=== PATIENT | female | born 1960 | race Caucasian/White ===

== ENCOUNTER 2018-02-13 23:43 | Inpatient (IN) ==
[2018-02-14] MEDS ORDERED: Naloxone 0.4 MG/ML INJ IVP PRN (02:30)
[2018-02-14] MEDS ORDERED: Acetaminophen 325 MG TABLET PO PRN (02:30)
--- NOTE | 2018-02-14 02:39 | Internal Med History&Physical ---
Date of Encounter: 02/14/18 Time of Encounter: 01:50 Internal Medicine - H&P: HPI Chief complaint: Shortness of breath Admitted From: Home Plans for Post Hospital Care: Home History of present illness: Ms. Yang is a 57 year old female present to [place] emergency room for shortness of breath. Past medical history is significant for COPD on home oxygen, hypertension. Patient has shortness of breasts which is getting progressively worse. Patient has a cough with greenish sputum, no blood in it. In last week, patient has a fever, measured as 101. Patient denies chest pain, nausea, or vomiting. Patient complaint of very weak in last week. She said she lost 7 pounds in last 3 months. In emergency room, CT chest shows large left-sided mass and pneumonia. Patient was transferred to our hospital for further management. Past Med Surg Social Fam HX - Past Medical History Medical history: COPD, hyperlipidemia, other Psychiatric history: no psych history, other - Social History Smoking Status: Current every day smoker Packs per day: < 1 Smokeless Tobacco Status: No Alcohol use: occasionally Drug use: none - Family History Father Living Status: Hx Family Respiratory Disorders: Yes (COPD) Hx Family Musculoskeletal Disorders: Yes (RA) Internal Medicine - H&P: Meds Albuterol Neb [AccuNeb] 3 ml IH QID PRN 11/16/17 [History] Amiodarone [Cordarone] 200 mg PO DAILY 11/17/17 [History] Ferrous Sulfate [Iron] 325 mg PO BID 11/17/17 [History] Folic Acid 1 mg PO DAILY 11/17/17 [History] Lisinopril 2.5 mg PO DAILY 11/17/17 [History] clonazePAM [Klonopin] 0.5 mg PO TID 11/17/17 [History] Aspirin [Ecotrin] 81 mg PO DAILY #0 11/19/17 [Rx] Fluticasone/Vilanterol [Breo Ellipta 100-25 Mcg INH] 1 puff IH DAILY 02/13/18 [ History] Furosemide [Lasix] 40 mg PO DAILY 02/13/18 [History] Montelukast [Singulair] 10 mg PO DAILY 02/13/18 [History] Omeprazole [PriLOSEC] 40 mg PO DAILY 02/13/18 [History] Potassium Chloride [Klor-Con 10] 10 meq PO BID 02/13/18 [History] Simvastatin [Zocor] 80 mg PO DAILY 02/13/18 [History] Tiotropium [place] [Spiriva Respimat] 4 gm IH 02/13/18 [History] 3 Allergy/AdvReac Type Severity Reaction Status Date / Time Sulfa (Sulfonamide Allergy Hives Verified 11/16/17 19:00 Antibiotics) All Systems PM: A 10-system review of systems was performed and is negative for pertinent findings except as documented above in the HPI. - Constitutional Vitals: Temp Pulse Resp BP Pulse Ox 97.9 F 71 16 111/62 95 02/14/18 02:01 02/14/18 02:01 02/14/18 02:01 02/14/18 02:01 02/14/18 02:01 General appearance: Present: cachectic, mild distress, A&O X 3, answers questions appropriately - Head Head exam: Present: atraumatic, normocephalic - Eye Eye exam: Present: PERRL, conjuntiva pink, sclera anicteric Pupils: Present: PERRL - Neck Neck exam general surgery: Present: supple, trachea midline. Absent: lymphadenopathy - Respiratory Respiratory exam: Present: CTAB. Absent: accessory muscle use, rales, rhonchi, wheezes Additional comments: rubs on left chest - Cardiovascular Cardiovascular exam: Present: RRR, +S1, +S2. Absent: diastolic murmur, gallop, rubs, systolic murmur - GI/Abdominal GI/Abdominal exam: Present: normal bowel sounds, soft, no peritoneal signs. Absent: distended, tenderness - Extremities Exam Extremities exam: Present: warm, radial pulses palpable and symmetrical. Absent : calf tenderness, cyanotic, pedal edema - Neurological Exam Neurological exam: Present: CN II-XII intact, oriented X3, no focal deficits. Absent: pronater drift, facial droop, speech deficit - Skin Skin exam: Present: dry, intact - Assessment and plan (1) Healthcare-associated pneumonia Current Visit: Yes Status: Acute Assessment and plan: Chest x-ray and CT chest shows pneumonia. Patient was recently admitted in hospital. Will treat patient as healthcare associates pneumonia. - Place patient on Vanco and cefepime - Continue symptomatic treatment and oxygen supportive treatment. (2) DVT prophylaxis Current Visit: Yes Status: Acute Assessment and plan: EPCD at this point. Will start heparin if no further procedure will be done. (3) COPD (chronic obstructive pulmonary disease) Current Visit: Yes Status: Acute Assessment and plan: No wheezing. Continue oxygen. Continue home medications Qualifiers: COPD type: emphysema Emphysema type: unspecified Qualified Code(s): J43.9 - Emphysema, unspecified (4) Lung mass Current Visit: No Status: Acute Assessment and plan: Large lung mass, probably malignancy neoplasm. Will consult pulmonology and oncology. Keep patient nothing by mouth for possible procedure. (5) Hyponatremia Current Visit: No Status: Resolved Assessment and plan: Patient has chronic hyponatremia. Place patient on low rate normal saline. Closely monitor sodium level. Goal of correction is not more than 8 mEq in the first 24 hours. - Time Spent With Patient Total time spent is greater than 50% in coordination of care (as documented) at patient's floor/unit and/or counseling patient: 40 minutes Greater than 35 minutes
[2018-02-14] MEDS ORDERED: Vancomycin 500 MG in 0.9 % Sodium Chloride 250 ML IVPB SCH (03:00)
[2018-02-14] MEDS: 0.9 % Sodium Chloride 1,000 ML IVC SCH ×2 (03:26→21:34)
[2018-02-14 03:46] LABS: Basophils # 0.1 K/mcL (0.0-0.2); Basophils % 0.5 %; Eosinophils # 0.9 K/mcL (0.0-0.6); Eosinophils % 7.6 %; Hematocrit 27.3 % (35.3-44.9); Hemoglobin 8.8 g/dL (11.5-15.4); Immature Granulocytes % 0.4 % (0-4); Lymphocytes # 1.1 K/mcL (0.6-4.6); Lymphocytes % 9.8 %; Mean Corpuscular HGB Conc 32.2 g/dL (31.6-35.5); Mean Corpuscular Hemoglobin 29.1 pg (28.0-33.3); Mean Corpuscular Volume 90.4 fL (83.0-100.0); Mean Platelet Volume 8.6 fL (9.4-12.4); Monocytes # 1.4 K/mcL (0.0-1.3); Monocytes % 12.1 %; Neutrophils # 7.8 K/mcL (1.6-8.9); Platelet Count 352 K/mcL (140-400); Red Blood Count 3.02 M/mcL (3.82-4.97); Red Cell Distribution Width 13.2 % (11.5-14.5); Segmented Neutrophils % 69.6 %
[2018-02-14 04:02] LABS: INR 1.1; Prothrombin Time 12.1 Seconds (9.4-12.1)
[2018-02-14 04:10] LABS: BUN/Creatinine Ratio 17 (6-26); Blood Urea Nitrogen 6 mg/dL (6-20); Calcium 8.6 mg/dL (8.6-10.3); Carbon Dioxide 30 mEq/L (23-29); Chloride 90 mEq/L (98-107); Glucose 84 mg/dL (70-105); Magnesium 1.8 mg/dL (1.6-2.6); Osmolality,Calculated 259 (280-300); Potassium 3.9 mEq/L (3.5-5.1); Sodium 126 mEq/L (136-145); eGFR For African Americans > 60 (> 60); eGFR For Non-African Americans > 60 (> 60)
[2018-02-14] MEDS ORDERED: Albuterol Neb 0.63 MG/3 ML VIAL IH PRN (05:00)
--- NOTE | 2018-02-14 07:34 | Pulmonology Consult Note ---
Date of Encounter: 02/14/18 Time of Encounter: 07:33 Assessment and Plan (1) Mass of left lung Current Visit: No Status: Acute I reviewed CT scan of the patient is notable for left upper lobe lung mass with diffuse lymphadenopathy in the right lower lobe cavitary lesion CONCERNING for metastatic lung cancer. -A bronchoscopy is recommended. The procedure , risks, benefits, complications, and expected outcomes have been reviewed. Benefits of diagnosis, as well as risks to include bleeding, infection, pneumothorax which may require surgical intervention, and in a small population. The patient is aware that sometimes test is nondiagnostic. Discussed with patient and agrees to proceed. -Please keep nothing by mouth at midnight for planned procedure tomorrow at 8 AM under general anesthesia (2) COPD with exacerbation Current Visit: Yes Status: Acute Schedule bronchodilators (duo nebs) every 6 hours with every one hour albuterol IV Solu-Medrol 40 mg twice a day with transition to oral formulation in the next 24-48 hours cont Breo 100-25 daily (3) Pneumonia Current Visit: No Status: Acute Notable left upper lobe infiltrate versus lymphangitic spread of malignancy given elevation in white count and symptoms is reasonable to treat for pneumonia agree with continuation of antibiotics please send sputum culture and blood cultures if not obtained also send urine Legionella and strep pneumo antigens Clinical course anywhere between 3-7 days based upon clinical response Qualifiers: Pneumonia type: due to unspecified organism Laterality: left Lung location: upper lobe of lung Qualified Code(s): J18.1 - Lobar pneumonia, unspecified organism (4) Tobacco abuse Current Visit: Yes Status: Acute Tobacco abuse counseling given please provide patient with nicotine replacement in the form of patch while inpatient History of Present Illness Consult date: 02/14/18 Requesting physician: Leanna Baker Reason for consult: abnormal CXR/CT Chief complaint: Difficulty in Breathing History of present illness: This is a 57-year-old woman with a past medical history of COPD who presented with worsening shortness of breath that started last night. She states that she generally has difficulty breathing but last night breathing became much more labored. She also had a nonproductive cough. Denies any hemoptysis night sweats but she has endorsed a 7-10 pound weight loss over last 3 months that has been addressed by her PCP by adding supplemental nutrition in the form of shakes. 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 No history of incarceration. In the ED she was noted to have a CT of the chest performed which was noted both for a left upper lobe mass pulmonary consulted for further evaluation. Past Med Surg Social Fam HX - Past Medical History Medical history: COPD, hyperlipidemia, other Psychiatric history: no psych history, other - Social History Smoking Status: Current every day smoker Packs per day: < 1 Smokeless Tobacco Status: No Alcohol use: occasionally Drug use: none - Family History Father Living Status: Hx Family Respiratory Disorders: Yes (COPD) Hx Family Musculoskeletal Disorders: Yes (RA) Medications and Allergies Albuterol Neb [AccuNeb] 3 ml IH QID PRN 11/16/17 [History] Amiodarone [Cordarone] 200 mg PO DAILY 11/17/17 [History] Ferrous Sulfate [Iron] 325 mg PO BID 11/17/17 [History] Folic Acid 1 mg PO DAILY 11/17/17 [History] Lisinopril 2.5 mg PO DAILY 11/17/17 [History] clonazePAM [Klonopin] 0.5 mg PO TID 11/17/17 [History] Aspirin [Ecotrin] 81 mg PO DAILY #0 11/19/17 [Rx] Fluticasone/Vilanterol [Breo Ellipta 100-25 Mcg INH] 1 puff IH DAILY 02/13/18 [ History] Furosemide [Lasix] 40 mg PO DAILY 02/13/18 [History] Montelukast [Singulair] 10 mg PO DAILY 02/13/18 [History] Omeprazole [PriLOSEC] 40 mg PO DAILY 02/13/18 [History] Potassium Chloride [Klor-Con 10] 10 meq PO BID 02/13/18 [History] Simvastatin [Zocor] 80 mg PO DAILY 02/13/18 [History] Tiotropium [place] [Spiriva Respimat] 4 gm IH 02/13/18 [History] 3 Allergy/AdvReac Type Severity Reaction Status Date / Time Sulfa (Sulfonamide Allergy Hives Verified 11/16/17 19:00 Antibiotics) All Systems: The remainder of the systems were reviewed and are negative Physical Examination Vital Signs: Vital Signs, Last 4 Hours Temp Pulse Resp BP Pulse Ox 02/14/18 06:47 97.8 F 74 22 117/69 99 General appearance: no acute distress, other (thin and frail appearing looks older than stated age) ENT: oropharynx moist Neck: no lymphadenopathy Effort: normal Auscultation: bilateral: diminished breath sounds Cardiovascular: regular rate and rhythm Gastrointestinal: normoactive bowel sounds Integumentary: normal Extremities: no cyanosis, no edema, no clubbing Musculoskeletal: no deformities normal mental status mood appropriate Results - Laboratory Findings CBC and BMP: 02/14/18 03:36 02/14/18 03:36 PT/INR, D-dimer PT 12.1 Seconds (9.4-12.1) 02/14/18 03:36 Abnormal lab findings: Abnormal lab results WBC 11.2 K/mcL (4.3-11.1) H 02/14/18 03:36 RBC 3.02 M/mcL (3.82-4.97) L 02/14/18 03:36 Hgb 8.8 g/dL (11.5-15.4) L 02/14/18 03:36 Hct 27.3 % (35.3-44.9) L 02/14/18 03:36 MPV 8.6 fL (9.4-12.4) L 02/14/18 03:36 Monocytes # 1.4 K/mcL (0.0-1.3) H 02/14/18 03:36 Eosinophils # 0.9 K/mcL (0.0-0.6) H 02/14/18 03:36 Sodium 126 mEq/L (136-145) L 02/14/18 03:36 Chloride 90 mEq/L (98-107) L 02/14/18 03:36 Carbon Dioxide 30 mEq/L (23-29) H 02/14/18 03:36 Creatinine 0.35 mg/dL (0.60-1.20) L 02/14/18 03:36 Calculated Osmolality 259 (280-300) L 02/14/18 03:36 - Diagnostic Findings Chest x-ray: report reviewed, image reviewed CT scan - chest: report reviewed, image reviewed - Clinical Findings Intake & Output: Intake & Output 02/13/18 02/13/18 02/14/18 15:59 23:59 07:59 Weight 40.8 kg Consult Discharge Plan - Plan Referrals: Jennifer Lee MD [Primary Care Provider] -
[2018-02-14] MEDS: (Breo Ellipta 100-25 Mcg Inh) IH SCH (08:22)
[2018-02-14] MEDS: Cefepime HCl 1,000 MG in Water for inj. (sterile) 20 ML 10 ML IVP SCH ×3 (08:23→23:41)
[2018-02-14 14:18] LABS: Sodium, Urine 102.8 mEq/L
--- NOTE | 2018-02-14 18:26 | Internal Med Progress Note ---
Date of Encounter: 02/14/18 Time of Encounter: 11:50 - Assessment and plan (1) Hyponatremia Current Visit: Yes Status: Acute Assessment and plan: Chronic. Patient is receiving gentle IV fluid hydration of 0.9 normal saline at 60 mL per hour. Sodium to be repeated at 1830. Repeat labs in the morning Goals correction is not more than 8 mEq in 24 hours. (2) Lung mass Current Visit: Yes Status: Acute Assessment and plan: Large lung mass noted on chest CT. Large left upper lung mass compatible with neoplasm, there is a cavitary lesion within the right lower lobe with increased regular wall thickening also worrisome for neoplasm. Patient was evaluated by pulmonology and recommended bronchoscopy and will be nothing by mouth after midnight for planned procedure tomorrow morning at 8 AM under general anesthesia. (3) Healthcare-associated pneumonia Current Visit: Yes Status: Acute Assessment and plan: Chest x-ray and CT chest shows pneumonia. Patient was recently admitted in hospital. We will treat for age Since recent admission. - Continue vancomycin and cefepime IV - Continue scheduled bronchodilators every 6 hours with every 1 hour albuterol, IV Solu-Medrol 40 mg twice daily with transition to oral in the next 24-48 and continue [place] 100/25 daily. Legionella and strep pneumo antigens ordered and pending (4) DVT prophylaxis Current Visit: Yes Status: Acute Assessment and plan: EPCD (5) COPD (chronic obstructive pulmonary disease) Current Visit: Yes Status: Acute Assessment and plan: Chronic. Plan as above. Qualifiers: COPD type: emphysema Emphysema type: unspecified Qualified Code(s): J43.9 - Emphysema, unspecified - Time Spent With Patient Total time spent is greater than 50% in coordination of care (as documented) at patient's floor/unit and/or counseling patient: less than 15 minutes - Subjective Interval history: She was seen and assessed at bedside at 11:50 AM. Patient is alert, awake, oriented. She is cachectic and reports decreased appetite recently. He wears 4 L of oxygen at home. She reports shortness of breath for 1 week, worse over the last 2-3 days. She is visibly short of breath and has obvious conversational dyspnea, though she states she is better now. She denies chest pain, headache, nausea vomiting, vision changes, abdominal pain. - Constitutional Vitals: Temp Pulse Resp BP Pulse Ox 98.8 F 88 20 142/80 91 02/14/18 15:20 02/14/18 15:20 02/14/18 16:29 02/14/18 15:20 02/14/18 16:29 General appearance: Present: cachectic, cooperative, mild distress, A&O X 3, pleasant, answers questions appropriately - Head Head exam: Present: atraumatic, normal inspection, normocephalic - Eye Eye exam: Present: normal appearance, conjuntiva pink, sclera anicteric - Neck Neck exam general surgery: Present: supple, trachea midline. Absent: lymphadenopathy, tenderness - Respiratory Respiratory exam: Present: decreased breath sounds, CTAB, respiratory distress. Absent: accessory muscle use, chest wall tenderness, rales, rhonchi, wheezes - Cardiovascular Cardiovascular exam: Present: RRR, +S1, +S2. Absent: diastolic murmur, gallop, rubs, systolic murmur - GI/Abdominal GI/Abdominal exam: Present: normal bowel sounds, soft. Absent: distended, hepatomegaly, tenderness - Extremities Exam Extremities exam: Present: normal capillary refill, normal inspection, warm, radial pulses palpable and symmetrical. Absent: calf tenderness, cyanotic, pedal edema, tenderness - Neurological Exam Neurological exam: Present: alert, oriented X3, no focal deficits. Absent: facial droop, speech deficit - Skin Skin exam: Present: dry, intact, normal color, warm. Absent: rash Internal Medicine: Result - Labs CBC & Chem 7: 02/14/18 03:36 02/14/18 03:36 Labs: Short CBC 02/14/18 Range/Units 03:36 WBC 11.2 H (4.3-11.1) K/mcL Hgb 8.8 L (11.5-15.4) g/dL Hct 27.3 L (35.3-44.9) % Plt Count 352 (140-400) K/mcL Neutrophils # 7.8 (1.6-8.9) K/mcL BMP 02/14/18 03:36 Sodium 126 L Potassium 3.9 Chloride 90 L Carbon Dioxide 30 H BUN 6 Creatinine 0.35 L Glucose 84 Calcium 8.6 - ABG Interpretation ABG results: PT/INR, D-dimer PT 12.1 Seconds (9.4-12.1) 02/14/18 03:36 - VTE Documentation of Mechanical Device: Intermittent pneumatic compression device Consult Discharge Plan - Plan Referrals: Jennifer Lee MD [Primary Care Provider] -
[2018-02-14] MEDS: Ipratropium/Albuterol Neb 3 ML IH SCH ×2 (19:17)
[2018-02-14] MEDS ORDERED: Furosemide 20 MG/2 ML VIAL IVP ONE (21:26)
[2018-02-14] MEDS: clonazePAM 0.5 MG TABLET PO SCH (21:29)
[2018-02-15] MEDS: Ipratropium/Albuterol Neb 3 ML IH SCH ×4 (03:50→22:25)
[2018-02-15] MEDS ORDERED: *HR* FentaNYL (PF) 100 MCG/2 ML VIAL IVP ONE (06:23)
[2018-02-15] MEDS ORDERED: Tetracaine/Benzocaine/Butamben 200MG/SPRAY (100SPY/BOT) MM ONE (06:23)
[2018-02-15] MEDS ORDERED: Albuterol 2.5 MG/3 ML NEBULIZER IH ONE (06:23)
[2018-02-15] MEDS ORDERED: *HR* Midazolam HCl 2 MG/2 ML VIAL IVP ONE (06:23)
[2018-02-15] MEDS ORDERED: *HR* EPINEPHrine 1 MG/10 ML SYRINGE INTRATRACH PRN (06:23)
[2018-02-15] MEDS ORDERED: Lidocaine -MPF 2% 2 ML VIAL IH ONE (06:23)
--- NOTE | 2018-02-15 06:23 | Pre-Sedation Evaluation ---
Pre-sedation evaluation - Pre-sedation checklist Date of procedure: 02/15/18 Procedure: Bronchoscopy Recent Vitals: Last Vital Signs Temp 97.5 F L 02/15/18 03:41 Pulse 87 02/15/18 03:41 Resp 15 02/15/18 03:50 BP 132/66 02/15/18 03:41 Pulse Ox 92 02/15/18 03:50 H&P (including ROS) documented in medical record: Yes Previous reaction to sedatives/anesthetics: No Dietary Status: NPO after Midnight Airway Assessment: Patient can open mouth completely, TMJ function normal Dentition: poor dentition Possible difficult airway: No ASA Classification *see protocol: CLASS III-Severe systemic disease Plan of Care: Pt appropriate candidate for procedure/moderate/conscious sedation , Risks/benefits of procedure/sedation discussed w/ patient/family
[2018-02-15] MEDS ORDERED: *HR* Succinylcholine 200 MG/10 ML VIAL IVP ONE (06:43)
[2018-02-15] MEDS ORDERED: Lidocaine -MPF 2% 2 ML VIAL ONE (06:43)
[2018-02-15] MEDS ORDERED: *HR* Propofol 200 MG/20 ML VIAL IVP ONE (06:49)
[2018-02-15 06:54] LABS: Basophils # 0.1 K/mcL (0.0-0.2); Basophils % 0.6 %; Eosinophils # 1.4 K/mcL (0.0-0.6); Eosinophils % 12.4 %; Hematocrit 27.6 % (35.3-44.9); Hemoglobin 8.9 g/dL (11.5-15.4); Immature Granulocytes % 0.3 % (0-4); Lymphocytes # 0.7 K/mcL (0.6-4.6); Mean Corpuscular HGB Conc 32.2 g/dL (31.6-35.5); Mean Corpuscular Hemoglobin 29.5 pg (28.0-33.3); Mean Corpuscular Volume 91.4 fL (83.0-100.0); Mean Platelet Volume 8.9 fL (9.4-12.4); Monocytes # 1.1 K/mcL (0.0-1.3); Monocytes % 9.5 %; Neutrophils # 8.3 K/mcL (1.6-8.9); Platelet Count 372 K/mcL (140-400); Red Blood Count 3.02 M/mcL (3.82-4.97); Red Cell Distribution Width 13.2 % (11.5-14.5); Segmented Neutrophils % 71.2 %
[2018-02-15 07:15] LABS: BUN/Creatinine Ratio 16 (6-26); Blood Urea Nitrogen 5 mg/dL (6-20); Calcium 8.5 mg/dL (8.6-10.3); Carbon Dioxide 31 mEq/L (23-29); Chloride 92 mEq/L (98-107); Glucose 96 mg/dL (70-105); Lactate Dehydrogenase 146 Units/L (140-271); Osmolality,Calculated 267 (280-300); Potassium 3.7 mEq/L (3.5-5.1); Sodium 130 mEq/L (136-145); eGFR For African Americans > 60 (> 60); eGFR For Non-African Americans > 60 (> 60)
[2018-02-15] MEDS ORDERED: *HR* PHENYLEPHRINE 1,000 MCG/10 ML SYRINGE IVP ONE (07:23)
--- NOTE | 2018-02-15 07:25 | Anesthesia Evaluation PreOp ---
Date of Encounter: 02/15/18 Time of Encounter: 08:00 - Past History Planned Operation: EBUS Cardiac History: HTN, Hyperlipidemia, Other (PFO with Left to right shunt) Pulmonary History: Smoker, COPD (Severe, Home O2 4 lpm), Other WATCH ADJUSTER History: Denies Any Significant HX Other Medical History: GERD, Other (Chronic hyponatremia, Anemia) Anesthesia History: No Prior Anesthetic Complications, Past Anesthesia Alcohol Use: occasionally Drug use: none Medications and Allergies Albuterol Neb [AccuNeb] 3 ml IH QID PRN 11/16/17 [History] Amiodarone [Cordarone] 200 mg PO DAILY 11/17/17 [History] Ferrous Sulfate [Iron] 325 mg PO BID 11/17/17 [History] Folic Acid 1 mg PO DAILY 11/17/17 [History] Lisinopril 2.5 mg PO DAILY 11/17/17 [History] clonazePAM [Klonopin] 0.5 mg PO TID 11/17/17 [History] Aspirin [Ecotrin] 81 mg PO DAILY #0 11/19/17 [Rx] Fluticasone/Vilanterol [Breo Ellipta 100-25 Mcg INH] 1 puff IH DAILY 02/13/18 [ History] Furosemide [Lasix] 40 mg PO DAILY 02/13/18 [History] Montelukast [Singulair] 10 mg PO DAILY 02/13/18 [History] Omeprazole [PriLOSEC] 40 mg PO DAILY 02/13/18 [History] Potassium Chloride [Klor-Con 10] 10 meq PO BID 02/13/18 [History] Simvastatin [Zocor] 80 mg PO DAILY 02/13/18 [History] Tiotropium [place] [Spiriva Respimat] 4 gm IH DAILY 02/13/18 [History] Albuterol Sulfate [Ventolin Hfa] 2 puff IH Q4-6H PRN 02/14/18 [History] 3 Allergy/AdvReac Type Severity Reaction Status Date / Time Sulfa (Sulfonamide Allergy Hives Verified 11/16/17 19:00 Antibiotics) - Meds/Allergy Pre-op Review Medications Reviewed: Yes Allergies Reviewed: Yes Beta Blockers on Current Med List: No Anesthesia Results - Labs 02/15/18 06:16 02/15/18 06:16 - Imaging Additional studies: CT Chest 02/13: Large left upper lung mass mass compatible with neoplasm demonstrating chest wall invasion which has increased since the prior study. Cavitary lesion within the right lower lobe with increased irregular wall thickening, also worrisome for neoplasm. Airspace disease throughout the remaining aerated left lung suspicious for pneumonia. TTE 2015: LVEF 55-60%. Mild concentric left ventricular hypertrophy. Mild left ventricular diastolic dysfunction. No pulmonary hypertension. Interatrial septum not well evaluated but evidence of probable left to right shunt by color Doppler. Stress test 2015: Negative for ischemia, Gated EF 70% Anesthesia Exam Height: 1.63m Weight: 42 kg (BMI 16) NPO (# of Hours): 8 - HEENT Mallampati: I Teeth: Missing, Poor dentition Oral Opening: Greater than 3 - WATCH ADJUSTER LOC: Oriented - Cardiac Rhythm: Regular - Pulmonary Breath Sounds: bilateral Rhonchi Respiratory Effort: Symmetrical Anesthesia Assess/Plan ASA Score: 4 Modified Suraj Scale for Level of Consciousness: Cooperative, oriented, and tranquil Anesthetic Plan: General Monitoring Plan: Standard Monitors Recovery Plan: PACU
[2018-02-15] MEDS ORDERED: 0.9 % Sodium Chloride 500 ML ONE (09:33)
[2018-02-15] MEDS: Ringers Solution, Lactated 1,000 ML IVC SCH ×2 (10:21→17:21)
[2018-02-15] MEDS: Cefepime HCl 1,000 MG in Water for inj. (sterile) 20 ML 10 ML IVP SCH ×3 (10:31→23:34)
[2018-02-15] MEDS: clonazePAM 0.5 MG TABLET PO SCH ×2 (10:33→20:30)
[2018-02-15] MEDS: Aspirin Enteric Coated 81 MG Tablet PO SCH (10:34)
[2018-02-15] MEDS: Furosemide 40 MG TABLET PO SCH (10:34)
[2018-02-15] MEDS: *HR* Amiodarone 200 MG TABLET PO SCH (10:34)
[2018-02-15] MEDS: (Breo Ellipta 100-25 Mcg Inh) IH SCH (10:34)
[2018-02-15] MEDS: Folic Acid 1 MG TABLET PO SCH (10:34)
[2018-02-15] MEDS: (Tiotropium Bromide [Spiriva Respimat] 4 GM) IH SCH (10:34)
[2018-02-15] MEDS ORDERED: Isovue-370 500 ML INFUS..BTL IV ONE (15:19)
--- NOTE | 2018-02-15 15:46 | Oncology Inp Consult Note ---
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 Serum osm low, urine Na increased over 100 Improving since admission, Na now 130 (2) Lung mass Status: Acute Assessment and plan: CT chest reveals large ([id number] cm in AP, transverse, and craniocaudal dimensions, respectively) left upper lung mass with destruction of the 2nd and 5th ribs and soft tissue component of chest wall invasion- increased since the prior study, left hilar adenopathy, cavitary lesion within the right lower lobe with increased irregular wall thickening, also worrisome for neoplasm, along with Airspace disease throughout the remaining aerated left lung suspicious for pneumonia. S/P Bronchoscopy today which revealed a malignant appearing left upper lobe endobronchial lesion-STUART suggestive of malignancy, right airway examination was normal. BAL, brushings, cytology, biopsy and culture pending. Patient was still quite drowsy from her earlier procedure. Will return tomorrow morning to discuss next steps with patient/family. In the meantime will obtain CT abdomen/pelvis. [id number] (3) Healthcare-associated pneumonia Status: Acute Assessment and plan: Reviewed pulmonology recommendations Treating as pneumonia versus potentential lymphangitic spread of malignancy Patient did report history or fever, lab data also reveals leukocytosis sputum culture, blood culture, urine legionella and strep pneumo antigens pending. Treating with vancomycin/cefepime Leukocytosis appears to be improving (4) Anemia Status: Acute Assessment and plan: Decreasing since July 2017 Stable at 8.9 over past few days Check nutritional stores-Iron, ferritin, B12, Folate Please refer to Dr. Rivera's attestation below for additional details Qualifiers: Anemia type: unspecified type Qualified Code(s): D64.9 - Anemia, unspecified - Data of Consult Patient: new to practice Consult date: 02/15/18 Requesting Physician: Rivera Lockett Primary Care Provider: Jennifer Lee - Consult Narrative Reason for consult: Left lung mass, right cavitary lesion History of present illness: Ms. Yang is a 57 year old female with past medical history significant for hyperlipidemia, COPD on home O2 and tobacco abuse. ROS and history obtained by chart review as patient is still quite drowsy from her procedure. Patient presented to [place] [facility] for increased SOB. Upon admission she denies chest pain, nausea, vomiting or hemoptysis. She has reported increased weakness, fever 101, 7 pound weight loss over the past [address] chest reveals large ([id number] cm in AP, transverse, and craniocaudal dimensions, respectively) left upper lung mass with destruction of the 2nd and 5th ribs and soft tissue component of chest wall invasion- increased since the prior study, left hilar adenopathy, cavitary lesion within the right lower lobe with increased irregular wall thickening, also worrisome for neoplasm, along with Airspace disease throughout the remaining aerated left lung suspicious for pneumonia. Past Med Surg Social Fam HX - Past Medical History Medical history: COPD, hyperlipidemia, other Psychiatric history: no psych history, other - Social History Smoking Status: Current every day smoker Packs per day: < 1 Smokeless Tobacco Status: No Alcohol use: occasionally Drug use: none - Family History Father Living Status: Hx Family Respiratory Disorders: Yes (COPD) Hx Family Musculoskeletal Disorders: Yes (RA) Medications and Allergies Albuterol Neb [AccuNeb] 3 ml IH QID PRN 11/16/17 [History] Amiodarone [Cordarone] 200 mg PO DAILY 11/17/17 [History] Ferrous Sulfate [Iron] 325 mg PO BID 11/17/17 [History] Folic Acid 1 mg PO DAILY 11/17/17 [History] Lisinopril 2.5 mg PO DAILY 11/17/17 [History] clonazePAM [Klonopin] 0.5 mg PO TID 11/17/17 [History] Aspirin [Ecotrin] 81 mg PO DAILY #0 11/19/17 [Rx] Fluticasone/Vilanterol [Breo Ellipta 100-25 Mcg INH] 1 puff IH DAILY 02/13/18 [ History] Furosemide [Lasix] 40 mg PO DAILY 02/13/18 [History] Montelukast [Singulair] 10 mg PO DAILY 02/13/18 [History] Omeprazole [PriLOSEC] 40 mg PO DAILY 02/13/18 [History] Potassium Chloride [Klor-Con 10] 10 meq PO BID 02/13/18 [History] Simvastatin [Zocor] 80 mg PO DAILY 02/13/18 [History] Tiotropium [place] [Spiriva Respimat] 4 gm IH DAILY 02/13/18 [History] Albuterol Sulfate [Ventolin Hfa] 2 puff IH Q4-6H PRN 02/14/18 [History] 3 Allergy/AdvReac Type Severity Reaction Status Date / Time Sulfa (Sulfonamide Allergy Hives Verified 11/16/17 19:00 Antibiotics) ROS unobtainable: due to mental status Review of systems: noted in HPI per chart review Oncology - Exam - Constitutional Vitals: Temp Pulse Resp BP Pulse Ox 98.0 F 82 17 98/59 92 02/15/18 11:39 02/15/18 11:39 02/15/18 15:12 02/15/18 11:39 02/15/18 15:12 General appearance: cooperative, no acute distress, thin, no febrile Exam: cachectic, chronically ill appearing - Head Head exam: Present: atraumatic - ENT ENT exam: Present: mucous membranes moist - Respiratory Respiratory exam: Present: decreased breath sounds. Absent: respiratory distress - Cardiovascular Cardiovascular exam: Present: RRR, +S1, +S2 - GI/Abdominal GI/Abdominal exam: Present: normal bowel sounds, soft. Absent: tenderness - Extremities Exam Extremities exam: Present: normal inspection - Neurological Exam Additional comments: responds to voice but is drowsy and falls back to sleep - Skin Skin exam: Present: dry, intact, normal color, warm Oncology - Results Labs: 3 02/15/18 02/15/18 02/15/18 14:47 06:16 06:16 WBC 11.6 H RBC 3.02 L Hgb 8.9 L Hct 27.6 L MCV 91.4 MCH 29.5 MCHC 32.2 RDW 13.2 Plt Count 372 MPV 8.9 L Immature Gran % 0.3 Seg Neutrophils % 71.2 Lymphocytes % 6.0 Monocytes % 9.5 Eosinophils % 12.4 Basophils % 0.6 Neutrophils # 8.3 Lymphocytes # 0.7 Monocytes # 1.1 Eosinophils # 1.4 H Basophils # 0.1 PT INR Sodium 130 L Potassium 3.7 Chloride 92 L Carbon Dioxide 31 H BUN 5 L Creatinine 0.31 L Est GFR ( Amer) > 60 Est GFR (Non-Af Amer) > 60 BUN/Creatinine Ratio 16 Glucose 96 POC Glucose Calculated Osmolality 267 L Calcium 8.5 L Magnesium Lactate Dehydrogenase 146 Urine Osmolality Urine Creatinine Urine Sodium Vancomycin Trough 8 3 02/15/18 02/14/18 02/14/18 06:05 20:49 18:37 WBC RBC Hgb Hct MCV MCH MCHC RDW Plt Count MPV Immature Gran % Seg Neutrophils % Lymphocytes % Monocytes % Eosinophils % Basophils % Neutrophils # Lymphocytes # Monocytes # Eosinophils # Basophils # PT INR Sodium 127 L Potassium Chloride Carbon Dioxide BUN Creatinine Est GFR ( Amer) Est GFR (Non-Af Amer) BUN/Creatinine Ratio Glucose POC Glucose 100 H 140 H Calculated Osmolality Calcium Magnesium Lactate Dehydrogenase Urine Osmolality Urine Creatinine Urine Sodium Vancomycin Trough 3 02/14/18 02/14/18 02/14/18 10:43 10:43 03:36 WBC RBC Hgb Hct MCV MCH MCHC RDW Plt Count MPV Immature Gran % Seg Neutrophils % Lymphocytes % Monocytes % Eosinophils % Basophils % Neutrophils # Lymphocytes # Monocytes # Eosinophils # Basophils # PT INR Sodium 126 L Potassium 3.9 Chloride 90 L Carbon Dioxide 30 H BUN 6 Creatinine 0.35 L Est GFR ( Amer) > 60 Est GFR (Non-Af Amer) > 60 BUN/Creatinine Ratio 17 Glucose 84 POC Glucose Calculated Osmolality 259 L Calcium 8.6 Magnesium 1.8 Lactate Dehydrogenase Urine Osmolality 362 Urine Creatinine 33 Urine Sodium 102.8 Vancomycin Trough 3 02/14/18 02/14/18 03:36 03:36 WBC 11.2 H RBC 3.02 L Hgb 8.8 L Hct 27.3 L MCV 90.4 MCH 29.1 MCHC 32.2 RDW 13.2 Plt Count 352 MPV 8.6 L Immature Gran % 0.4 Seg Neutrophils % 69.6 Lymphocytes % 9.8 Monocytes % 12.1 Eosinophils % 7.6 Basophils % 0.5 Neutrophils # 7.8 Lymphocytes # 1.1 Monocytes # 1.4 H Eosinophils # 0.9 H Basophils # 0.1 PT 12.1 INR 1.1 Sodium Potassium Chloride Carbon Dioxide BUN Creatinine Est GFR ( Amer) Est GFR (Non-Af Amer) BUN/Creatinine Ratio Glucose POC Glucose Calculated Osmolality Calcium Magnesium Lactate Dehydrogenase Urine Osmolality Urine Creatinine Urine Sodium Vancomycin Trough Consult Discharge Plan - Plan Referrals: Jennifer Lee MD [Primary Care Provider] - 02/21/18 1:00 pm (This appointment will be with Alysa Wood CNP. )
[2018-02-15 15:48] LABS: Source of Body Fluid LUL BAL
[2018-02-15 15:48] LABS: Source of Body Fluid RLL BAL
--- NOTE | 2018-02-15 16:04 | Internal Med Progress Note ---
Date of Encounter: 02/15/18 Time of Encounter: 16:10 - Assessment and plan (1) Lung mass Current Visit: Yes Status: Acute Assessment and plan: chest CT with left upper lobe lung mass with diffuse lymphadenopathy in the right lower lobe concerning for metastatic lung cancer. S/p bronchosocpy on 02/15 per Pulmonology. ABD/pelvis CT pending. Pulmonology and oncology following. With increased lethargy and hypotension post procedure. Hold home BP medications and clonidine at this time. (2) Hyponatremia Current Visit: Yes Status: Acute Assessment and plan: Na 126. Improving with IV fluids. Na 130 on 02/15 exam. (3) Healthcare-associated pneumonia Current Visit: Yes Status: Acute Assessment and plan: Chest x-ray and CT chest shows pneumonia. Urinary antigens negative. Continue vancomycin and cefepime. Resp PCR and blood cx's pending (4) COPD (chronic obstructive pulmonary disease) Current Visit: Yes Status: Acute Assessment and plan: with suspected observation. Continue ATB as noted above, bronchodilators. Aggressive IS encouraged Qualifiers: Qualified Code(s): J43.9 - Emphysema, unspecified (5) DVT prophylaxis Current Visit: Yes Status: Acute Assessment and plan: SCD - Time Spent With Patient Total time spent is greater than 50% in coordination of care (as documented) at patient's floor/unit and/or counseling patient: - Subjective Interval history: Seen and examined at bedside; patient is new to me. Information today mostly from chart review and significant other at bedside as patient is still quite drowsy from sedation received with bronchoscopy. Significant other says patient woke up breifly and ate a little then fell back asleep. Patient is as able responsive. Denies chest pain, no shortness of breath. 6 her head yes when asked about a cough. - Constitutional Vitals: Temp Pulse Resp BP Pulse Ox 97.6 F 78 17 94/54 94 02/15/18 15:53 02/15/18 15:53 02/15/18 15:53 02/15/18 15:53 02/15/18 15:53 General appearance: Present: cachectic, cooperative, A&O X 3, pleasant, answers questions appropriately - Head Head exam: Present: atraumatic, normocephalic - Eye Eye exam: Present: PERRL, conjuntiva pink, sclera anicteric Pupils: Present: PERRL - Neck Neck exam general surgery: Present: supple, trachea midline. Absent: lymphadenopathy - Respiratory Respiratory exam: Present: CTAB. Absent: accessory muscle use, rales, rhonchi, wheezes - Cardiovascular Cardiovascular exam: Present: RRR, +S1, +S2. Absent: diastolic murmur, gallop, rubs, systolic murmur - GI/Abdominal GI/Abdominal exam: Present: normal bowel sounds, soft, no peritoneal signs. Absent: distended, tenderness - Extremities Exam Extremities exam: Present: warm, radial pulses palpable and symmetrical. Absent : calf tenderness, cyanotic, pedal edema - Neurological Exam Neurological exam: Present: CN II-XII intact, oriented X3, no focal deficits. Absent: pronater drift, facial droop, speech deficit - Skin Skin exam: Present: dry, intact Internal Medicine: Result - Labs CBC & Chem 7: 02/15/18 06:16 02/15/18 06:16 Labs: Short CBC 02/15/18 Range/Units 06:16 WBC 11.6 H (4.3-11.1) K/mcL Hgb 8.9 L (11.5-15.4) g/dL Hct 27.6 L (35.3-44.9) % Plt Count 372 (140-400) K/mcL Neutrophils # 8.3 (1.6-8.9) K/mcL BMP 02/14/18 02/15/18 18:37 06:16 Sodium 127 L 130 L Potassium 3.7 Chloride 92 L Carbon Dioxide 31 H BUN 5 L Creatinine 0.31 L Glucose 96 Calcium 8.5 L - ABG Interpretation ABG results: PT/INR, D-dimer PT 12.1 Seconds (9.4-12.1) 02/14/18 03:36 - VTE Documentation of Mechanical Device: Intermittent pneumatic compression device Consult Discharge Plan - Plan Referrals: Jennifer Lee MD [Primary Care Provider] - 02/21/18 1:00 pm (This appointment will be with Alysa Wood CNP. )
[2018-02-15 17:59] LABS: Appearance of Body Fluid Cloudy (Clear); Volume of Body Fluid 10 mL
[2018-02-15 22:54] LABS: Appearance of Body Fluid Cloudy (Clear); Volume of Body Fluid 20 mL
[2018-02-16] MEDS: Ipratropium/Albuterol Neb 3 ML IH SCH ×4 (03:53→22:14)
--- NOTE | 2018-02-16 06:35 | Pulmonology Progress Note ---
Date of Encounter: 02/16/18 Time of Encounter: 06:35 Assessment and Plan (1) Mass of left lung Current Visit: No Status: Inactive Says is bronchoscopy notable for left upper lobe invasive endobronchial tumor with biopsy she did have notable bleeding requiring APC and epinephrine administration. Preliminary results suspicious for primary lung malignancy pending final pathological results for a consultation with oncology as necessary. I did update the patient with a preliminary results (2) COPD with exacerbation Current Visit: Yes Status: Acute Patient can be transitioned to oral prednisone 40 mg to complete a two-week taper Continue bronchodilators Follow-up outpatient pulmonary for further treatment (3) Pneumonia Current Visit: No Status: Acute De-escalate to respiratory fluoroquinolone Levaquin to complete 5 days white count normal cultures negative at this time Qualifiers: Pneumonia type: due to unspecified organism Laterality: left Lung location: upper lobe of lung Qualified Code(s): J18.1 - Lobar pneumonia, unspecified organism (4) Tobacco abuse Current Visit: Yes Status: Acute Tobacco abuse counseling given Subjective Principal diagnosis: Pneumonia Interval history: Patient has done well overnight no untoward effects as well as bronchoscopy. She is tolerating Diovan denies any hemoptysis shows old "shaky today" otherwise no acute changes Objective PUL Vital signs: Last Vital Signs Temp 98.2 F 02/16/18 02:43 Pulse 79 02/16/18 02:43 Resp 19 02/16/18 03:53 BP 102/46 02/16/18 02:43 Pulse Ox 95 02/16/18 03:53 General appearance: no acute distress, other (FEN frail appearing) Effort: normal Auscultation: bilateral: rhonchi (Scattered) Cardiovascular: regular rate and rhythm Gastrointestinal: normoactive bowel sounds Integumentary: normal Extremities: no cyanosis, no edema, no clubbing normal mental status, non-focal exam mood appropriate Results - Laboratory Findings CBC and BMP: 02/16/18 05:43 02/16/18 05:43 PT/INR, D-dimer PT 12.1 Seconds (9.4-12.1) 02/14/18 03:36 Abnormal lab findings: Abnormal lab results WBC 11.6 K/mcL (4.3-11.1) H 02/15/18 06:16 RBC 3.02 M/mcL (3.82-4.97) L 02/15/18 06:16 Hgb 8.9 g/dL (11.5-15.4) L 02/15/18 06:16 Hct 27.6 % (35.3-44.9) L 02/15/18 06:16 MPV 8.9 fL (9.4-12.4) L 02/15/18 06:16 Eosinophils # 1.4 K/mcL (0.0-0.6) H 02/15/18 06:16 Sodium 130 mEq/L (136-145) L 02/15/18 06:16 Chloride 92 mEq/L (98-107) L 02/15/18 06:16 Carbon Dioxide 31 mEq/L (23-29) H 02/15/18 06:16 BUN 5 mg/dL (6-20) L 02/15/18 06:16 Creatinine 0.31 mg/dL (0.60-1.20) L 02/15/18 06:16 POC Glucose 243 mg/dL (70-99) H 02/15/18 23:10 Calculated Osmolality 267 (280-300) L 02/15/18 06:16 Calcium 8.5 mg/dL (8.6-10.3) L 02/15/18 06:16 Fluid Appearance Cloudy (Clear) A 02/15/18 09:15 - Microbiology Findings Microbiology Findings: Microbiology, Last 48 Hours 02/15/18 09:14 Gram Stain - Preliminary Right Lower Lobe Lung 02/15/18 09:14 Gram Stain - Preliminary Left Upper Lobe Lung 02/14/18 12:54 Legionella Antigen - Final Urine,Clean Catch Streptococcus pneumoniae Antigen (M - Final - Clinical Findings Intake & Output: Intake & Output 02/15/18 02/15/18 02/16/18 15:59 23:59 07:59 Intake Total 260 / 260 Output Total 900 / 900 Balance -640 / -640 Weight 42 kg - VTE Documentation of Mechanical Device: Intermittent pneumatic compression device Consult Discharge Plan - Plan Referrals: Jennifer Lee MD [Primary Care Provider] - 02/21/18 1:00 pm (This appointment will be with Alysa Wood CNP. )
[2018-02-16 07:02] LABS: Hematocrit 26.1 % (35.3-44.9); Hemoglobin 8.1 g/dL (11.5-15.4); Mean Corpuscular Hemoglobin 28.4 pg (28.0-33.3); Mean Corpuscular Volume 91.6 fL (83.0-100.0); Mean Platelet Volume 9.1 fL (9.4-12.4); Platelet Count 382 K/mcL (140-400); Red Blood Count 2.85 M/mcL (3.82-4.97); Red Cell Distribution Width 13.2 % (11.5-14.5)
[2018-02-16 07:22] LABS: BUN/Creatinine Ratio 26 (6-26); Blood Urea Nitrogen 7 mg/dL (6-20); Calcium 8.7 mg/dL (8.6-10.3); Carbon Dioxide 30 mEq/L (23-29); Chloride 93 mEq/L (98-107); Glucose 139 mg/dL (70-105); Osmolality,Calculated 270 (280-300); Sodium 130 mEq/L (136-145); eGFR For African Americans > 60 (> 60); eGFR For Non-African Americans > 60 (> 60)
[2018-02-16] MEDS: Cefepime HCl 1,000 MG in Water for inj. (sterile) 20 ML 10 ML IVP SCH (08:15)
[2018-02-16] MEDS: Nicotine 14 MG PATCH.TD24 TD SCH (08:18)
[2018-02-16] MEDS: (Breo Ellipta 100-25 Mcg Inh) IH SCH (08:18)
[2018-02-16] MEDS: Furosemide 40 MG TABLET PO SCH (08:18)
[2018-02-16] MEDS: *HR* Amiodarone 200 MG TABLET PO SCH (08:18)
[2018-02-16] MEDS: (Tiotropium Bromide [Spiriva Respimat] 4 GM) IH SCH (08:18)
[2018-02-16] MEDS: Folic Acid 1 MG TABLET PO SCH (08:18)
[2018-02-16] MEDS: Aspirin Enteric Coated 81 MG Tablet PO SCH (08:18)
[2018-02-16] MEDS: clonazePAM 0.5 MG TABLET PO PRN ×3 (11:14→22:06)
--- NOTE | 2018-02-16 16:04 | Internal Med Progress Note ---
Date of Encounter: 02/16/18 Time of Encounter: 16:09 - Assessment and plan (1) Lung mass Current Visit: Yes Status: Acute Assessment and plan: chest CT with left upper lobe lung mass with diffuse lymphadenopathy in the right lower lobe concerning for metastatic lung cancer. S/p bronchosocpy on 02/15 with preliminary results suspicious for primary lung malignancy. Final pathology pending. No evidence of metastasis on abdomen/pelvis CT. Pulmonology and oncology following. (2) Hyponatremia Current Visit: Yes Status: Acute Assessment and plan: Na 126. Improving with IV fluids. Na 130 on 02/16 exam. (3) Healthcare-associated pneumonia Current Visit: Yes Status: Acute Assessment and plan: Chest x-ray and CT chest shows pneumonia. Urinary antigens negative. Respiratory culture with normal upper respiratory tract brown, no pathogens isolated. Initially treated with IV vancomycin and cefepime. Clinically improving, de-escalate ATB to Levaquin (4) COPD (chronic obstructive pulmonary disease) Current Visit: Yes Status: Acute Assessment and plan: with suspected observation. Continue ATB as noted above, bronchodilators. Aggressive IS encouraged. De-escalate sterioids to PO (complete a 2 week taper) Qualifiers: Qualified Code(s): J43.9 - Emphysema, unspecified (5) DVT prophylaxis Current Visit: Yes Status: Acute Assessment and plan: SCD - Time Spent With Patient Anemia: Hgb 8.1; per Pulmonology notes, she did have notable bleeding requiring APC and epinephrine administration during bronchoscopy. No active hemoptysis. Monitor repeat H&H - Subjective Interval history: Seen and examined at bedside; patient is new to me. Information today mostly from chart review and significant other at bedside as patient is still quite drowsy from sedation received with bronchoscopy. Significant other says patient woke up breifly and ate a little then fell back asleep. Patient is as able responsive. Denies chest pain, no shortness of breath. 6 her head yes when asked about a cough. - Constitutional Vitals: Temp Pulse Resp BP Pulse Ox 98.0 F 78 18 110/60 96 02/16/18 07:37 02/16/18 07:37 02/16/18 15:47 02/16/18 09:55 02/16/18 15:47 General appearance: Present: cachectic, cooperative, A&O X 3, pleasant, answers questions appropriately - Head Head exam: Present: atraumatic, normocephalic - Eye Eye exam: Present: PERRL, conjuntiva pink, sclera anicteric Pupils: Present: PERRL - Neck Neck exam general surgery: Present: supple, trachea midline. Absent: lymphadenopathy - Respiratory Respiratory exam: Present: CTAB, rhonchi. Absent: accessory muscle use, rales, wheezes - Cardiovascular Cardiovascular exam: Present: RRR, +S1, +S2. Absent: diastolic murmur, gallop, rubs, systolic murmur - GI/Abdominal GI/Abdominal exam: Present: normal bowel sounds, soft, no peritoneal signs. Absent: distended, tenderness - Extremities Exam Extremities exam: Present: warm, radial pulses palpable and symmetrical. Absent : calf tenderness, cyanotic, pedal edema - Neurological Exam Neurological exam: Present: CN II-XII intact, oriented X3, no focal deficits. Absent: pronater drift, facial droop, speech deficit - Skin Skin exam: Present: dry, intact Internal Medicine: Result - Labs CBC & Chem 7: 02/16/18 05:43 02/16/18 05:43 Labs: Short CBC 02/16/18 Range/Units 05:43 WBC 9.2 (4.3-11.1) K/mcL Hgb 8.1 L (11.5-15.4) g/dL Hct 26.1 L (35.3-44.9) % Plt Count 382 (140-400) K/mcL BMP 02/16/18 05:43 Sodium 130 L Potassium 4.0 Chloride 93 L Carbon Dioxide 30 H BUN 7 Creatinine 0.27 L Glucose 139 H Calcium 8.7 - ABG Interpretation ABG results: PT/INR, D-dimer PT 12.1 Seconds (9.4-12.1) 02/14/18 03:36 - Impressions Impressions Abdomen/Pelvis CT 02/15/18 19:00 IMPRESSION: No evidence of metastatic disease is identified within the abdomen pelvis. Diffuse anasarca. Large amount of stool within the colon. Correlate with clinical evidence constipation. Mild urinary bladder distention. Severe atherosclerosis. D/ / Frank Malagon MD / Frank Malagon MD Interpreting Provider: Frank Malagon MD - VTE Documentation of Mechanical Device: Intermittent pneumatic compression device Consult Discharge Plan - Plan Referrals: Jennifer Lee MD [Primary Care Provider] - 02/21/18 1:00 pm (This appointment will be with Alysa Wood CNP. )
--- NOTE | 2018-02-16 16:38 | Oncology Inp Progress Note ---
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 S/P Bronchoscopy yesterday which revealed a malignant appearing left upper lobe endobronchial lesion-STUART suggestive of malignancy, right airway examination was normal. BAL, brushings, cytology, biopsy and culture pending. Discussed with pulmonology-appears malignant, potentially squamous cell, final path pending. Right lung mass may be amendable to ultrasound guided biopsy, will discuss next week with Dr. King We discussed CT imaging findings suggestive of likely primary lung cancer, relationship with cavitary lesion is unknown whether new primary, metastatic disease or potentially non malignant. Biopsy is needed for confirmation and will be pursued on an outpatient basis, staging and treatment options will be discussed following PET scan and right lung biopsy. In the meantime, we will plan for PET scan next Wednesday, she will then follow up with Dr. Mccurdy on . She will also follow up with pulmonology, she will likely have biopsy of right lung lesion on outpatient basis. (3) Healthcare-associated pneumonia Current Visit: Yes Status: Acute Assessment and plan: De-escalating to respiratory Levaquin, leukocytosis improved, cultures negative at this time (4) Anemia Current Visit: No Status: Acute Assessment and plan: Decreasing since July 2017 Stable at this time, 8.1 today Suspect anemia of chronic disease Iron, ferritin, B12, Folate-normal Please refer to Dr. Rivera's attestation below for additional details Qualifiers: Anemia type: unspecified type Qualified Code(s): D64.9 - Anemia, unspecified Oncology: Subj Interval history: Ms. Yang is resting in bed. She denies pain. O2 at 5 L, home O2 at 4L but patient states they increased 1L when adding the humidification. Family at bedside, patients , daughter and son - Constitutional Vitals: Vital Signs Temp Pulse Resp BP Pulse Ox 02/16/18 15:47 18 96 02/16/18 09:55 16 110/60 96 02/16/18 07:37 98.0 F 78 17 110/60 97 02/16/18 03:53 19 95 02/16/18 02:43 98.2 F 79 18 102/46 97 02/15/18 23:11 97.9 F 74 18 99/50 96 02/15/18 22:25 18 98 02/15/18 18:23 98.1 F 84 20 89/50 90 Intake and Output 02/16/18 02/16/18 02/16/18 07:59 15:59 23:59 Output Total 1200 / 1200 Balance -1200 / -1200 Output: Urine 1200 / 1200 Other: Weight 42 kg Blood Glucose* 149 134 Patient Weight 02/16/18 23:59 Weight 42 kg General appearance: cooperative, no acute distress, no febrile Exam: cachectic, chronically ill appearing - Head Head exam: Present: atraumatic - ENT ENT exam: Present: mucous membranes moist - Respiratory Respiratory exam: Present: decreased breath sounds. Absent: respiratory distress - GI/Abdominal GI/Abdominal exam: Present: normal bowel sounds, soft. Absent: guarding, rebound, tenderness - Extremities Exam Extremities exam: Present: normal inspection. Absent: calf tenderness - Neurological Exam Neurological exam: Present: alert, oriented X3, no focal deficits, strengths equal and symetr throughout - Psychiatric Psychiatric exam: Present: normal affect, normal mood - Skin Skin exam: Present: dry, intact, normal color, warm Oncology: Obj Data - Labs CBC & Chem 7: 02/16/18 05:43 02/16/18 05:43 - Impressions Impressions Abdomen/Pelvis CT 02/15/18 19:00 IMPRESSION: No evidence of metastatic disease is identified within the abdomen pelvis. Diffuse anasarca. Large amount of stool within the colon. Correlate with clinical evidence constipation. Mild urinary bladder distention. Severe atherosclerosis. D/ / Frank Malagon MD / Frank Malagon MD Interpreting Provider: Frank Malagon MD - ABG Interpretation ABG results: PT/INR, D-dimer PT 12.1 Seconds (9.4-12.1) 02/14/18 03:36 Consult Discharge Plan - Plan Referrals: Jennifer Lee MD [Primary Care Provider] - 02/21/18 1:00 pm (This appointment will be with Alysa Wood CNP. )
[2018-02-16] MEDS ORDERED: Gadolinium Contrast Agent (WT Based) IV PRN (16:53)
[2018-02-16] MEDS ORDERED: Aminoglycoside Consult 1 EACH MC ONE (20:04)
[2018-02-17] MEDS: Ipratropium/Albuterol Neb 3 ML IH SCH ×5 (03:43→22:05)
[2018-02-17 07:12] LABS: Hematocrit 27.7 % (35.3-44.9); Hemoglobin 8.8 g/dL (11.5-15.4); Mean Corpuscular HGB Conc 31.8 g/dL (31.6-35.5); Mean Corpuscular Hemoglobin 29.4 pg (28.0-33.3); Mean Corpuscular Volume 92.6 fL (83.0-100.0); Platelet Count 389 K/mcL (140-400); Red Blood Count 2.99 M/mcL (3.82-4.97); Red Cell Distribution Width 13.3 % (11.5-14.5)
[2018-02-17 07:33] LABS: BUN/Creatinine Ratio 21 (6-26); Blood Urea Nitrogen 7 mg/dL (6-20); Calcium 8.7 mg/dL (8.6-10.3); Carbon Dioxide 37 mEq/L (23-29); Chloride 91 mEq/L (98-107); Glucose 88 mg/dL (70-105); Osmolality,Calculated 273 (280-300); Potassium 4.5 mEq/L (3.5-5.1); Sodium 133 mEq/L (136-145); eGFR For African Americans > 60 (> 60); eGFR For Non-African Americans > 60 (> 60)
[2018-02-17] MEDS: Folic Acid 1 MG TABLET PO SCH (09:22)
[2018-02-17] MEDS: predniSONE 20 MG TABLET PO SCH (09:22)
[2018-02-17] MEDS: Nicotine 14 MG PATCH.TD24 TD SCH (09:23)
[2018-02-17] MEDS: Aspirin Enteric Coated 81 MG Tablet PO SCH (09:23)
[2018-02-17] MEDS: levoFLOXacin 750 MG TABLET PO SCH (09:23)
[2018-02-17] MEDS: Furosemide 40 MG TABLET PO SCH (09:23)
[2018-02-17] MEDS: *HR* Amiodarone 200 MG TABLET PO SCH (09:23)
[2018-02-17] MEDS: (Breo Ellipta 100-25 Mcg Inh) IH SCH (09:24)
[2018-02-17] MEDS: (Tiotropium Bromide [Spiriva Respimat] 4 GM) IH SCH (09:24)
--- NOTE | 2018-02-17 10:56 | Internal Med Progress Note ---
Date of Encounter: 02/17/18 Time of Encounter: 10:52 - Assessment and plan (1) Lung mass Current Visit: Yes Status: Acute Assessment and plan: chest CT showed large left upper lung mass mass with chest wall invasion ( increased since the prior study) and RLL cavitary lesion. S/p bronch on revealed a malignant appearing left upper lobe endobronchial lesion suggestive of malignancy, right airway examination was normal. Final path pendingNo evidence of metastasis on abdomen/pelvis CT. Right lung mass may be amendable to ultrasound guided biopsy; Oncology to discuss next week with Dr. King. Biopsy is needed for confirmation of right lung mass and will be pursued on an outpatient basis, staging and treatment options will be discussed following PET scan and right lung biopsy. Pulmonology and oncology following. (2) Healthcare-associated pneumonia Current Visit: Yes Status: Acute Assessment and plan: Chest x-ray and CT chest shows pneumonia. Urinary antigens negative. Respiratory culture with normal upper respiratory tract brown, no pathogens isolated. Initially treated with IV vancomycin and cefepime with de-escalation to Levaquin. With persistent SOB on 02/16 exam. Cont ATB, steroids, nebs. (3) Hyponatremia Current Visit: Yes Status: Acute Assessment and plan: Na 126. Improving with IV fluids. Na 130 on 02/16 exam. (4) COPD (chronic obstructive pulmonary disease) Current Visit: Yes Status: Acute Assessment and plan: with suspected observation. Continue ATB as noted above, bronchodilators. Aggressive IS encouraged. De-escalate sterioids to PO (complete a 2 week taper) Qualifiers: COPD type: emphysema Emphysema type: unspecified Qualified Code(s): J43.9 - Emphysema, unspecified (5) DVT prophylaxis Current Visit: Yes Status: Acute Assessment and plan: SCD - Time Spent With Patient Total time spent is greater than 50% in coordination of care (as documented) at patient's floor/unit and/or counseling patient: - Subjective Interval history: Seen and examined at bedside; sitting up in bed. Appears dyspneic. Says she feels more short of breath today than she did yesterday. Has a nonproductive cough. She does not feel she can go home today. Daughter at bedside and updated. - Constitutional Vitals: Temp Pulse Resp BP Pulse Ox 97.8 F 93 16 119/72 93 02/17/18 10:49 06/14/18 10:49 02/17/18 10:49 02/17/18 10:49 02/17/18 10:49 General appearance: Present: cachectic, cooperative, mild distress (Mildly dyspneic), A&O X 3, pleasant, answers questions appropriately - Head Head exam: Present: atraumatic, normocephalic - Eye Eye exam: Present: PERRL, conjuntiva pink, sclera anicteric Pupils: Present: PERRL - Neck Neck exam general surgery: Present: supple, trachea midline. Absent: lymphadenopathy - Respiratory Respiratory exam: Present: CTAB, respiratory distress (Appears dyspneic), rhonchi. Absent: accessory muscle use, rales, wheezes - Cardiovascular Cardiovascular exam: Present: RRR, +S1, +S2. Absent: diastolic murmur, gallop, rubs, systolic murmur - GI/Abdominal GI/Abdominal exam: Present: normal bowel sounds, soft, no peritoneal signs. Absent: distended, tenderness - Extremities Exam Extremities exam: Present: warm, radial pulses palpable and symmetrical. Absent : calf tenderness, cyanotic, pedal edema - Neurological Exam Neurological exam: Present: CN II-XII intact, oriented X3, no focal deficits. Absent: pronater drift, facial droop, speech deficit - Skin Skin exam: Present: dry, intact Internal Medicine: Result - Labs CBC & Chem 7: 02/17/18 06:21 02/17/18 06:21 Labs: Short CBC 02/17/18 Range/Units 06:21 WBC 13.1 H (4.3-11.1) K/mcL Hgb 8.8 L (11.5-15.4) g/dL Hct 27.7 L (35.3-44.9) % Plt Count 389 (140-400) K/mcL BMP 02/17/18 06:21 Sodium 133 L Potassium 4.5 Chloride 91 L Carbon Dioxide 37 H BUN 7 Creatinine 0.33 L Glucose 88 Calcium 8.7 - ABG Interpretation ABG results: PT/INR, D-dimer PT 12.1 Seconds (9.4-12.1) 02/14/18 03:36 - Impressions Impressions Brain MRI 02/16/18 16:53 IMPRESSION: No evidence of intracranial metastatic disease. D/ / Ruel Valdovinos MD / Ruel Valdovinos MD Interpreting Provider: Ruel Valdovinos MD - VTE Documentation of Mechanical Device: Intermittent pneumatic compression device Consult Discharge Plan - Plan Referrals: Jennifer Lee MD [Primary Care Provider] - 02/21/18 1:00 pm (This appointment will be with Alysa Wood CNP. )
[2018-02-17] MEDS: clonazePAM 0.5 MG TABLET PO SCH ×3 (12:20→23:06)
--- NOTE | 2018-02-17 17:39 | Oncology Inp Progress Note ---
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 S/P Bronchoscopy on 02/15/18-pathology pending Discussed concern regarding patients declining respiratory status and overall poor performance status with patient and patients daughter at bedside today. Patient was barely able to tolerate a sponge bath in bed today. Discussed the very real possibility that patient may be a poor candidate for chemotherapy. Patients daughter has multiple family members visiting tomorrow, they wish to have goals of care discussion tomorrow. This will also allow time to continue to monitor patient for improvement in respiratory function. Patient and family to continue to discuss goals of care in meantime. Code status was addressed and patient has asked to be a DNRCCA-DNI, daughter at bedside also in agreement. (3) Healthcare-associated pneumonia Status: Acute Assessment and plan: De-escalating to respiratory Levaquin, leukocytosis improved, cultures negative at this time (4) Anemia Status: Acute Assessment and plan: Decreasing since July 2017 Stable at this time, 8.1 today Suspect anemia of chronic disease Iron, ferritin, B12, Folate-normal Please refer to Dr. Rivera's attestation below for additional details Qualifiers: Anemia type: unspecified type Qualified Code(s): D64.9 - Anemia, unspecified Oncology: Subj Interval history: Ms. Yang is resting in bed, appears in mild distress, tachypneic, states she has had a rough day. She reports left rib pain. No nausea or vomiting. Her daughter is at bedside. Daughter states patient has been quite anxious and SOB today. Patient tires with getting up to BSC. She tolerated a sponge bath in bed quite poorly according to patients daughter, it took about 45 minutes to complete the bath - Constitutional Vitals: Vital Signs Temp Pulse Resp BP Pulse Ox 02/17/18 15:49 17 97 02/17/18 15:39 97.9 F 83 16 98/62 98 02/17/18 10:56 17 94 02/17/18 10:49 97.8 F 93 16 119/72 93 02/17/18 07:54 98.5 F 83 16 108/69 99 02/17/18 03:49 98.0 F 83 15 128/70 97 02/17/18 03:43 16 97 02/16/18 23:46 98.1 F 84 16 115/63 100 02/16/18 22:14 20 99 Intake and Output 02/17/18 02/17/18 02/17/18 07:59 15:59 23:59 Intake Total 500 / 500 360 / 360 Output Total 300 / 300 600 / 600 550 / 550 Balance 200 / 200 -240 / -240 -550 / -550 Intake: Oral 500 / 500 360 / 360 Output: Urine 300 / 300 600 / 600 550 / 550 Other: Meal Lunch Percent of Meal Consumed 75% Weight 42 kg Blood Glucose* 95 91 Patient Weight 02/17/18 23:59 Weight 42 kg General appearance: cooperative, mild distress, thin, no febrile Exam: cachectic, chronically ill appearing - Head Head exam: Present: atraumatic - ENT ENT exam: Present: mucous membranes moist - Respiratory Respiratory exam: Present: decreased breath sounds, wheezes. Absent: respiratory distress - Cardiovascular Cardiovascular exam: Present: RRR, +S1, +S2 - GI/Abdominal GI/Abdominal exam: Present: normal bowel sounds, soft. Absent: guarding, rebound, tenderness - Extremities Exam Extremities exam: Absent: calf tenderness - Neurological Exam Neurological exam: Present: alert, oriented X3, no focal deficits, strengths equal and symetr throughout - Psychiatric Psychiatric exam: Present: normal affect, normal mood - Skin Skin exam: Present: dry, intact, normal color, warm Oncology: Obj Data - Labs CBC & Chem 7: 02/18/18 06:05 02/18/18 06:05 - Impressions Impressions Brain MRI 02/16/18 16:53 IMPRESSION: No evidence of intracranial metastatic disease. D/ / uRel Valdovinos MD / Ruel Valdovinos MD Interpreting Provider: Ruel Valdovinos MD - ABG Interpretation ABG results: PT/INR, D-dimer PT 12.1 Seconds (9.4-12.1) 02/14/18 03:36 Consult Discharge Plan - Plan Instructions: Lorazepam (By mouth), Prednisone (By mouth), Morphine, Rapid Release (By mouth), Levofloxacin (By mouth), Lung Cancer (DC), Pneumonia (DC) Referrals: Jennifer Lee MD [Primary Care Provider] - 02/21/18 1:00 pm (This appointment will be with Alysa Wood CNP. ) Prescriptions: LORazepam Oral Conc [Ativan Oral Conc] 0.5 mg PO Q8HR PRN 7 Days #10 mls PRN Reason: Anxiety levoFLOXacin [Levaquin] 750 mg PO DAILY #3 tablet OxyCODONE Oral Soln [OxyCODONE ORAL SOLN] 5 mg SL Q6H PRN 7 Days #140 mls PRN Reason: Pain predniSONE [PredniSONE] 10 mg PO DAILY #40 tablet
[2018-02-17] MEDS: Ringers Solution, Lactated 1,000 ML IVC SCH (20:11)
[2018-02-17] MEDS: Cefepime HCl 1,000 MG in Water for inj. (sterile) 20 ML 10 ML IVP SCH (20:32)
[2018-02-18] MEDS: Ipratropium/Albuterol Neb 3 ML IH SCH ×4 (03:36→22:43)
[2018-02-18 06:55] LABS: BUN/Creatinine Ratio 28 (6-26); Blood Urea Nitrogen 9 mg/dL (6-20); Calcium 9.1 mg/dL (8.6-10.3); Carbon Dioxide 38 mEq/L (23-29); Chloride 90 mEq/L (98-107); Glucose 100 mg/dL (70-105); Osmolality,Calculated 273 (280-300); Potassium 4.1 mEq/L (3.5-5.1); Sodium 132 mEq/L (136-145); eGFR For African Americans > 60 (> 60); eGFR For Non-African Americans > 60 (> 60)
[2018-02-18 07:54] LABS: Hematocrit 28.7 % (35.3-44.9); Mean Corpuscular HGB Conc 31.4 g/dL (31.6-35.5); Mean Corpuscular Hemoglobin 28.8 pg (28.0-33.3); Mean Corpuscular Volume 91.7 fL (83.0-100.0); Platelet Count 418 K/mcL (140-400); Red Blood Count 3.13 M/mcL (3.82-4.97); Red Cell Distribution Width 13.2 % (11.5-14.5)
[2018-02-18] MEDS: clonazePAM 0.5 MG TABLET PO SCH (10:17)
[2018-02-18] MEDS: levoFLOXacin 750 MG TABLET PO SCH (10:17)
[2018-02-18] MEDS: *HR* Amiodarone 200 MG TABLET PO SCH (10:17)
[2018-02-18] MEDS: predniSONE 20 MG TABLET PO SCH (10:17)
[2018-02-18] MEDS: Aspirin Enteric Coated 81 MG Tablet PO SCH (10:17)
[2018-02-18] MEDS: Furosemide 40 MG TABLET PO SCH (10:17)
[2018-02-18] MEDS: (Breo Ellipta 100-25 Mcg Inh) IH SCH (10:17)
[2018-02-18] MEDS: Folic Acid 1 MG TABLET PO SCH (10:17)
[2018-02-18] MEDS: Nicotine 14 MG PATCH.TD24 TD SCH (10:18)
[2018-02-18] MEDS: (Tiotropium Bromide [Spiriva Respimat] 4 GM) IH SCH (10:32)
[2018-02-18 11:32] VITALS: BP 111/67
--- NOTE | 2018-02-18 14:37 | Discharge Summary ---
Date of Encounter: 02/18/18 Time of Encounter: 14:29 - Discharge Diagnosis (1) Lung mass Priority: Primary Status: Acute Assessment and Plan: chest CT showed large left upper lung mass mass with chest wall invasion ( increased since the prior study) and RLL cavitary lesion. S/p bronch on revealed a malignant appearing left upper lobe endobronchial lesion suggestive of malignancy, right airway examination was normal. No evidence of metastasis on abdomen/pelvis CT. Brain MRI without evidence of brain metastasis. Final pathology showed squamous cell carcinoma. After multiple discussions with oncology, patient family decided to forego treatment and go home with hospice given her poor respiratory status, reports performance status and overall poor prognosis. Palliative care was unable to see patient while hospitalized however per Aliyah, APPLICATION PACKAGING CONSULTANT will discharge home with Roxanol and Ativan. Patient will be discharged home with [facility]. (2) Healthcare-associated pneumonia Priority: Primary Status: Acute Assessment and Plan: Chest x-ray and CT chest shows pneumonia. Urinary antigens negative. Respiratory culture with normal upper respiratory tract brown, no pathogens isolated. Initially treated with IV vancomycin and cefepime with de-escalation to Levaquin. Continue Levaquin at discharge; to complete a total course of 5 days. (3) Hyponatremia Priority: Primary Status: Acute Assessment and Plan: Na 126. Improved with IV fluids. (4) COPD (chronic obstructive pulmonary disease) Priority: Primary Status: Acute Assessment and Plan: with suspected observation. Continue ATB as noted above, bronchodilators. Aggressive IS encouraged. De-escalate sterioids to PO (complete a 2 week taper) Qualifiers: COPD type: emphysema Emphysema type: unspecified Qualified Code(s): J43.9 - Emphysema, unspecified Hospital course: Please see assessment and plan for Hospital course Discharge discussed with: patient (Seen and examined at bedside. She actually looks a lot better today. Sitting up on edge of bed. Lung sounds much better today. Family at bedside and had a long discussion with oncology. Decision has been made per patient and family to forego treatment and go home with hospice. Discussed case with [facility] NUCLEAR POWER PLANT ENGINEER and Aliyah palliative NUCLEAR POWER PLANT ENGINEER and will provide 1 week Rx for Roxanol and Ativan. All questions and concerns answered from patient and family.) - Time Spent with Patient Total time spent providing and/or coordinating discharge services: - Discharge Medications Prescriptions: LORazepam Oral Conc [Ativan Oral Conc] 0.5 mg PO Q8HR PRN 7 Days #10 mls PRN Reason: Anxiety levoFLOXacin [Levaquin] 750 mg PO DAILY #3 tablet OxyCODONE Oral Soln [OxyCODONE ORAL SOLN] 5 mg SL Q6H PRN 7 Days #140 mls PRN Reason: Pain predniSONE [PredniSONE] 10 mg PO DAILY #40 tablet Home Medications: Albuterol Neb [AccuNeb] 3 ml IH QID PRN 11/16/17 [History] Amiodarone [Cordarone] 200 mg PO DAILY 11/17/17 [History] Ferrous Sulfate [Iron] 325 mg PO BID 11/17/17 [History] Folic Acid 1 mg PO DAILY 11/17/17 [History] Lisinopril 2.5 mg PO DAILY 11/17/17 [History] clonazePAM [Klonopin] 0.5 mg PO TID 11/17/17 [History] Aspirin [Ecotrin] 81 mg PO DAILY #0 11/19/17 [Rx] Fluticasone/Vilanterol [Breo Ellipta 100-25 Mcg INH] 1 puff IH DAILY 02/13/18 [ History] Furosemide [Lasix] 40 mg PO DAILY 02/13/18 [History] Montelukast [Singulair] 10 mg PO DAILY 02/13/18 [History] Omeprazole [PriLOSEC] 40 mg PO DAILY 02/13/18 [History] Potassium Chloride [Klor-Con 10] 10 meq PO BID 02/13/18 [History] Simvastatin [Zocor] 80 mg PO DAILY 02/13/18 [History] Tiotropium Serena [Spiriva Respimat] 4 gm IH DAILY 02/13/18 [History] Albuterol Sulfate [Ventolin Hfa] 2 puff IH Q4-6H PRN 02/14/18 [History] LORazepam Oral Conc [Ativan Oral Conc] 0.5 mg PO Q8HR PRN 7 Days #10 mls [Rx] OxyCODONE Oral Soln [OxyCODONE ORAL SOLN] 5 mg SL Q6H PRN 7 Days #140 mls [Rx] levoFLOXacin [Levaquin] 750 mg PO DAILY #3 tablet 02/18/18 [Rx] predniSONE [PredniSONE] 10 mg PO DAILY #40 tablet 02/18/18 [Rx] Allergies/Adverse Reactions: 3 Allergy/AdvReac Type Severity Reaction Status Date / Time Sulfa (Sulfonamide Allergy Hives Verified 11/16/17 19:00 Antibiotics) Date of admission: 02/14/18 02:30 Primary care physician: Jennifer Lee Consults: 02/14/18 02:34 Consult to Oncology [CONS] Routine Consulting Provider: [facility] Reason for Consult: Lung Mass Call Completed: No Consult to Pulmonology [CONS] Routine Consulting Provider: [facility] Reason for Consult: Lung Mass Call Completed: Yes 02/14/18 09:25 Consult to Nurse Navigator [CONS] Routine Comment: COPD, PNEUMONIA 02/14/18 18:44 Consult to Occupational Therapy [CONS] Routine Comment: Evaluate, develop and implement POC Reason for Consult: evaluation Does patient have active BEDREST order?: No Is patient medically & hemodynamically stable?: Yes Patient assessed for mobility or mobilized this visit?: Yes Consult to Physical Therapy [CONS] Routine Comment: Evaluate, develop and implement POC Reason for Consult: evaluation Does patient have active BEDREST order?: No Is patient medically & hemodynamically stable?: Yes Patient assessed for mobility or mobilized this visit?: Yes 02/14/18 18:46 Consult to Nutrition [CONS] Routine Comment: Consulting Provider: NUTRITION Reason for Dietary Consult: PO Supplementation 02/17/18 12:24 Consult to Manager Call Center [CONS] Routine Reason for SW Consult: discharge planning Discharging clinician: Aide Carter Anticipated date of discharge: 02/18/18 - Constitutional Vitals: Temp Pulse Resp BP Pulse Ox 97.7 F 86 17 111/67 100 02/18/18 11:27 02/18/18 11:27 02/18/18 11:27 02/18/18 11:27 02/18/18 11:27 General appearance: Present: cachectic, cooperative, A&O X 3, pleasant, no acute distress, answers questions appropriately - Head Head exam: Present: atraumatic, normocephalic - Eye Eye exam: Present: PERRL, conjuntiva pink, sclera anicteric Pupils: Present: PERRL - Neck Neck exam general surgery: Present: supple, trachea midline. Absent: lymphadenopathy - Respiratory Respiratory exam: Present: rhonchi (Scattered rhonchi improved from yesterday's exam). Absent: accessory muscle use, rales, wheezes - Cardiovascular Cardiovascular exam: Present: RRR, +S1, +S2. Absent: diastolic murmur, gallop, rubs, systolic murmur - GI/Abdominal GI/Abdominal exam: Present: normal bowel sounds, soft, no peritoneal signs. Absent: distended, tenderness - Extremities Exam Extremities exam: Present: warm, radial pulses palpable and symmetrical. Absent : calf tenderness, cyanotic, pedal edema - Neurological Exam Neurological exam: Present: CN II-XII intact, oriented X3, no focal deficits. Absent: pronater drift, facial droop, speech deficit - Skin Skin exam: Present: dry, intact - Patient Status Disposition: Hospice - Home Condition: Fair Functional capacity at discharge: uses cane/walker Overall status at discharge: patient is progressing back to baseline - Discharge Instructions Instructions: Lorazepam (By mouth), Morphine, Rapid Release (By mouth), Lung Cancer (DC), Levofloxacin (By mouth), Prednisone (By mouth), Pneumonia (DC) Follow Up With: Jennifer Lee MD [Primary Care Provider] - 02/21/18 1:00 pm (This appointment will be with Alysa Wood CNP. ) - Diet and Activity Activity: increase activity as tolerated Diet: advance to your usual diet - VTE Documentation of Mechanical Device: Intermittent pneumatic compression device
--- NOTE | 2018-02-18 14:52 | Physician Discharge Referral ---
Home Health/Hosp Referral Info Transfer to: Hospice Attending Provider: Aide Carter CNP Provider in Charge Post Discharge: PCP - Diagnosis (1) Lung mass Status: Acute (2) Healthcare-associated pneumonia Status: Acute (3) Hyponatremia Status: Acute (4) COPD (chronic obstructive pulmonary disease) Status: Acute - Respiratory Orders Oxygen / L per min (3) Smoking Cessation: Smoking cessation has been advised. For more information, call the [place] Tobacco Quit Line at 5-477-XZFT-NOW. - Diet/Nutrition Diet/Nutrition Orders: Regular - Activity Activity Orders: Walker - Services Needed Following services are medically necessary services: Nursing, Home Health Aide - Transfer Medications Prescriptions: LORazepam Oral Conc [Ativan Oral Conc] 0.5 mg PO Q8HR PRN 7 Days #10 mls PRN Reason: Anxiety levoFLOXacin [Levaquin] 750 mg PO DAILY #3 tablet OxyCODONE Oral Soln [OxyCODONE ORAL SOLN] 5 mg SL Q6H PRN 7 Days #140 mls PRN Reason: Pain predniSONE [PredniSONE] 10 mg PO DAILY #40 tablet Home Medications: Albuterol Neb [AccuNeb] 3 ml IH QID PRN 11/16/17 [History] Amiodarone [Cordarone] 200 mg PO DAILY 11/17/17 [History] Ferrous Sulfate [Iron] 325 mg PO BID 11/17/17 [History] Folic Acid 1 mg PO DAILY 11/17/17 [History] Lisinopril 2.5 mg PO DAILY 11/17/17 [History] clonazePAM [Klonopin] 0.5 mg PO TID 11/17/17 [History] Aspirin [Ecotrin] 81 mg PO DAILY #0 11/19/17 [Rx] Fluticasone/Vilanterol [Breo Ellipta 100-25 Mcg INH] 1 puff IH DAILY 02/13/18 [ History] Furosemide [Lasix] 40 mg PO DAILY 02/13/18 [History] Montelukast [Singulair] 10 mg PO DAILY 02/13/18 [History] Omeprazole [PriLOSEC] 40 mg PO DAILY 02/13/18 [History] Potassium Chloride [Klor-Con 10] 10 meq PO BID 02/13/18 [History] Simvastatin [Zocor] 80 mg PO DAILY 02/13/18 [History] Tiotropium [place] [Spiriva Respimat] 4 gm IH DAILY 02/13/18 [History] Albuterol Sulfate [Ventolin Hfa] 2 puff IH Q4-6H PRN 02/14/18 [History] LORazepam Oral Conc [Ativan Oral Conc] 0.5 mg PO Q8HR PRN 7 Days #10 mls [Rx] OxyCODONE Oral Soln [OxyCODONE ORAL SOLN] 5 mg SL Q6H PRN 7 Days #140 mls [Rx] levoFLOXacin [Levaquin] 750 mg PO DAILY #3 tablet 02/18/18 [Rx] predniSONE [PredniSONE] 10 mg PO DAILY #40 tablet 02/18/18 [Rx] Allergies/Adverse Reactions: 3 Allergy/AdvReac Type Severity Reaction Status Date / Time Sulfa (Sulfonamide Allergy Hives Verified 11/16/17 19:00 Antibiotics) Certification: Further, I certify that my clinical findings support that this patient is homebound (i.e. absences from home require considerable and taxing effort and are for medical reasons or quaker services or infrequently or short duration when for other reasons) because: Homebound Reason: Severity of cardiac or pulmonary status limits activity tolerance Attestation: My signature below is to certify that this patient is under my care and that I, or nurse practitioner, or a physician's student assistant working with me, has a face-to -face encounter with this patient.
--- NOTE | 2018-02-18 15:14 | Oncology Inp Progress Note ---
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 Dr. Rivera discussed pathology results with patient/patients family at bedside today, consistent with squamous cell carcinoma. Staging and treatment options to would be determined following further workup including PET imaging and likely right lower lobe biopsy. Overall prognosis was discussed. Treatment intent would need to be determined with pending workup, however, patients overall prognosis is quite poor given her rapid decline in performance status and poor respiratory function secondary to end stage lung disease. Patient and patients family at bedside wish to pursue hospice. They state they have discussed their options including aggressive treatment approach versus comfort care options and wish to go home with hospice tonight. student support services director is assisting to set up hospice referral, patient is planned to discharge home with hospice today. Should she make strides once home or at anytime, she is aware she may revoke hospice at any given point and that she may call the office at any time for any questions or concerns. (3) Healthcare-associated pneumonia Status: Acute Assessment and plan: De-escalating to respiratory Levaquin, leukocytosis improved, cultures negative at this time (4) Anemia Status: Acute Assessment and plan: Decreasing since July 2017, Stable Suspect anemia of chronic disease Iron, ferritin, B12, Folate-normal Please refer to Dr. Rivera's attestation below for additional details Qualifiers: Anemia type: unspecified type Qualified Code(s): D64.9 - Anemia, unspecified Oncology: Subj Interval history: Met with patient and multiple family members at bedside today, including patients daughter and patients mother. Patients daughter state that she was able to have a good discussion last night regarding her wishes in her care. - Constitutional Vitals: Vital Signs Temp Pulse Resp BP Pulse Ox 02/18/18 11:27 97.7 F 86 17 111/67 100 02/18/18 10:35 18 98 02/18/18 10:12 98 02/18/18 07:09 98 F 78 17 117/73 99 02/18/18 03:38 14 99 02/18/18 03:29 97.9 F 72 14 113/73 100 02/18/18 00:11 97.7 F 84 14 112/72 98 02/17/18 22:07 16 93 02/17/18 18:39 97.8 F 90 14 106/62 96 02/17/18 15:49 17 97 02/17/18 15:39 97.9 F 83 16 98/62 98 Intake and Output 02/17/18 02/18/18 02/18/18 23:59 07:59 15:59 Intake Total 600 / 600 920 / 920 Output Total 750 / 750 Balance -150 / -150 920 / 920 Intake: Oral 600 / 600 920 / 920 Output: Urine 750 / 750 Other: Meal NPO Percent of Meal Consumed 0% # Voids 2 Weight 44.5 kg Patient Weight 02/18/18 23:59 Weight 44.5 kg General appearance: cooperative, no acute distress, thin, no febrile Exam: cachectic, chronically ill appearing - Head Head exam: Present: atraumatic - ENT ENT exam: Present: mucous membranes moist - Respiratory Respiratory exam: Present: decreased breath sounds, wheezes. Absent: respiratory distress - Cardiovascular Cardiovascular exam: Present: RRR, +S1, +S2 - GI/Abdominal GI/Abdominal exam: Present: normal bowel sounds, soft. Absent: guarding, rebound, tenderness - Extremities Exam Extremities exam: Present: normal inspection. Absent: calf tenderness - Neurological Exam Neurological exam: Present: alert, oriented X3, no focal deficits, strengths equal and symetr throughout - Psychiatric Psychiatric exam: Present: normal affect, normal mood - Skin Skin exam: Present: dry, intact, normal color, warm Oncology: Obj Data - Labs CBC & Chem 7: 02/18/18 06:05 02/18/18 06:05 - ABG Interpretation ABG results: PT/INR, D-dimer PT 12.1 Seconds (9.4-12.1) 02/14/18 03:36 Consult Discharge Plan - Plan Instructions: Lorazepam (By mouth), Prednisone (By mouth), Morphine, Rapid Release (By mouth), Levofloxacin (By mouth), Lung Cancer (DC), Pneumonia (DC) Referrals: Jennifer Lee MD [Primary Care Provider] - 02/21/18 1:00 pm (This appointment will be with Alysa Wood CNP. ) Prescriptions: LORazepam Oral Conc [Ativan Oral Conc] 0.5 mg PO Q8HR PRN 7 Days #10 mls PRN Reason: Anxiety levoFLOXacin [Levaquin] 750 mg PO DAILY #3 tablet OxyCODONE Oral Soln [OxyCODONE ORAL SOLN] 5 mg SL Q6H PRN 7 Days #140 mls PRN Reason: Pain predniSONE [PredniSONE] 10 mg PO DAILY #40 tablet
== END 2018-02-18 20:05 | disposition hospice, home (50) | DRG 121 ==
LOC: 3BNU
PROVIDERS: ADMIT Internal Medicine; ATTEND Internal Medicine
PROC: ENDOBBX (2018-02-15 08:00)